=== PATIENT | male | born 1955 | race Caucasian/White ===

== ENCOUNTER → 2017-08-17 | Outpatient (CLI) | payer BC ==
[~2017-08-17] MED LIST: ABAC300; AMLO5; BENA20; BUPR150ER; CLOBET30L; IBUP800; OMEP20ER; Simvastatin20 MG
== END ==
LOC: PLD 11:56 → LAB SHORT 11:56
DX: L82.0 Inflamed seborrheic keratosis (principal)
CPT/HCPCS: 88305

== ENCOUNTER → 2020-07-28 | Outpatient (CLI) | payer OTHER | END | disposition home or self-care (01) | LOC: PLD 13:58 → LAB SHORT 13:58 | DX: L30.8 Other specified dermatitis (principal); L81.4 Other melanin hyperpigmentation; L82.1 Other seborrheic keratosis | CPT/HCPCS: 88305; 88312; 88342 ==